=== PATIENT | male | born 1965 | race Caucasian/White ===

== ENCOUNTER 2023-09-04 14:51 | Emergency (ER) | payer BC ==
[~2023-09-04] VITALS: Ht 177.8 cm; Wt 77.3 kg
[2023-09-04 14:52] VITALS: BP 136/92; PULSE 98; TEMP 98.8; O2SAT 97
[2023-09-04 16:15] VITALS: RESP 16
[2023-09-04] MEDS: oxyCODONE/APAP 5-325mg tablet PO ONE (16:15)
== END 2023-09-04 17:45 | disposition home or self-care (01) ==
LOC: ER 14:52
DX: S30.0XXA Contusion of lower back and pelvis, initial encounter (principal); S20.224A Contusion of middle back wall of thorax, initial encounter; W19.XXXA Unspecified fall, initial encounter; Y93.89 Activity, other specified; Y92.89 Other specified places as the place of occurrence of the external cause; Y99.8 Other external cause status
CPT/HCPCS: 72128; 72131; 99284